=== PATIENT | female | born 2000 | race Caucasian/White ===

== ENCOUNTER 2022-10-03 08:14 | Inpatient (IN) | payer MEDICAID, MEDICARE ==
[~2022-10-03] VITALS: Ht 162.6 cm; Wt 70.3 kg
[2022-10-03] MEDS ORDERED: METHYLERGONOVINE MALEATE 0.2 MG/ML IM PRN ×2 (08:45→10:00)
[2022-10-03] MEDS ORDERED: LACTATED RINGERS 1,000 ML IV SCH (08:45)
[2022-10-03] MEDS ORDERED: NALOXONE HCL 0.4 MG/ML 1ML VIAL IM PRN (08:45)
[2022-10-03] MEDS ORDERED: LIDOCAINE HCL 1% 20ML VIAL (Pyxis) INJ INFIL SCH (08:45)
[2022-10-03] MEDS ORDERED: MINERAL OIL 30ML BOTTLE PO ONE (08:45)
[2022-10-03] MEDS ORDERED: PENICILLIN G POTASSIUM 5 MMU in DEXT 5% WATER 100 ML IV NR (09:30)
[2022-10-03] MEDS: OXYTOCIN 30 UNITS/500ML NS PMX 500 ML IV SCH ×2 (09:39→11:23)
[2022-10-03] MEDS ORDERED: OXYTOCIN 30 UNITS/500ML NS PMX 500 ML IV SCH (10:00)
[2022-10-03] MEDS ORDERED: IBUPROFEN 400MG TABLET PO PRN (10:00)
[2022-10-03] MEDS ORDERED: LANOLIN OINT 7GM TUBE TOP PRN (10:00)
[2022-10-03] MEDS ORDERED: RHO(D) IMMUNE GLOBULIN 300 MCG/SYR IM PRN (10:00)
[2022-10-03] MEDS ORDERED: BENZOCAINE/LANOLIN/ALOE VERA SPRAY TOP PRN (10:00)
[2022-10-03 10:39] LABS: BASOPHILS % 0.3 % (0.0-2.0); EOSINOPHILS % 0.1 % (0.0-5.0); HEMATOCRIT. 28.2 % (36.0-48.0); HEMOGLOBIN. 9.1 g/dL (12.0-16.0); LYMPHOCYTES % 28.1 % (20.0-50.0); MEAN CORPUSCULAR HEMOGLOBIN 25.9 pg (28.0-32.0); MEAN PLATELET VOLUME 9.9 fl (7.4-10.4); MONOCYTES % 5.4 % (2.0-8.0); NEUTROPHILS % 66.1 % (40.0-76.0); PLATELET 278 x1000/uL (130-400); RED BLOOD CELL COUNT 3.53 mill/uL (4.2-5.4); RED CELL DISTRIBUTION WIDTH 16.2 % (11.6-14.6)
[2022-10-03 10:42] LABS: CLARITY URINE CLOUDY (CLEAR); COLOR URINE DARK YELLOW (YELLOW); KETONES URINE 3+ (NEGATIVE); LEUKOCYTE ESTERASE URINE TRACE (NEGATIVE); NITRITE URINE NEGATIVE (NEGATIVE); OCCULT BLOOD URINE 3+ (NEGATIVE); PROTEIN URINE 2+ (NEGATIVE); SPECIFIC GRAVITY URINE 1.034 (1.005-1.030)
[2022-10-03 10:59] LABS: INR 0.9; PROTHROMBIN TIME 10.1 sec (9.6-11.0)
[2022-10-03 11:03] LABS: *AMPHETAMINES SCREEN URINE NEGATIVE (NEGATIVE); *BARBITURATES SCREEN URINE NEGATIVE (NEGATIVE); *BENZODIAZEPINES SCREEN URINE NEGATIVE (NEGATIVE); *COCAINE SCREEN URINE NEGATIVE (NEGATIVE); CANNABINOID URINE SCREEN NEGATIVE (NEGATIVE); METHADONE URINE SCREEN NEGATIVE (NEGATIVE); OPIATES URINE SCREEN NEGATIVE (NEGATIVE); PHENCYCLIDINE URINE SCREEN NEGATIVE (NEGATIVE)
[2022-10-03] MEDS: IBUPROFEN 800MG TABLET PO PRN (11:20)
[2022-10-03 12:00] VITALS: BP 131/53; PULSE 94; RESP 18; TEMP 98.1; O2SAT 97
[2022-10-03 13:11] LABS: HEPATITIS B SURFACE ANTIGEN NEGATIVE
[2022-10-03] MEDS ORDERED: PENICILLIN G POTASSIUM 2.5 MMU in DEXTROSE 5% WATER 50 ML IV SCH (13:30)
[2022-10-03 15:30] VITALS: BP 114/57; PULSE 61; RESP 18; TEMP 98.5; O2SAT 99
[2022-10-03 20:00] VITALS: O2SAT 98
[2022-10-03 20:40] VITALS: BP 106/60; PULSE 93; RESP 18; TEMP 99
[2022-10-04 03:00] VITALS: BP 107/61; PULSE 75; RESP 18; TEMP 98.7
[2022-10-04 07:03] LABS: BASOPHILS % 0.3 % (0.0-2.0); EOSINOPHILS % 0.1 % (0.0-5.0); LYMPHOCYTES % 17.3 % (20.0-50.0); MEAN CORPUSCULAR HEMOGLOBIN 25.4 pg (28.0-32.0); MEAN CORPUSCULAR VOLUME 80.7 fL (81.0-99.0); MEAN PLATELET VOLUME 9.6 fl (7.4-10.4); MONOCYTES % 5.1 % (2.0-8.0); NEUTROPHILS % 77.2 % (40.0-76.0); PLATELET 199 x1000/uL (130-400); RED BLOOD CELL COUNT 2.52 mill/uL (4.2-5.4); RED CELL DISTRIBUTION WIDTH 15.7 % (11.6-14.6)
[2022-10-04 07:49] LABS: HEMATOCRIT. 20.4 % (36.0-48.0); HEMOGLOBIN. 6.4 g/dL (12.0-16.0)
[2022-10-04] MEDS ORDERED: PRENATAL VIT/FE FUMARATE/FA TABLET PO SCH (09:00)
[2022-10-04 09:30] VITALS: O2SAT 98
[2022-10-04 10:30] VITALS: BP 115/65; PULSE 88; RESP 18; TEMP 98.7
[2022-10-04 15:00] VITALS: BP 110/64; PULSE 92; RESP 18; TEMP 98.6
[2022-10-04 20:00] VITALS: BP 111/71; PULSE 90; RESP 18; TEMP 98.9; O2SAT 97
[2022-10-04] MEDS ORDERED: DOCUSATE SODIUM 100MG CAPSULE PO SCH (21:00)
[2022-10-04] MEDS: IBUPROFEN 800MG TABLET PO PRN (21:14)
[2022-10-05 03:00] VITALS: BP 107/60; PULSE 80; RESP 18; TEMP 98.6
[2022-10-05] MEDS ORDERED: FERR-71 MT (06:46)
[2022-10-05] MEDS ORDERED: IBUP-2029 MT (06:46)
[2022-10-05 08:00] VITALS: BP 96/50; PULSE 88; RESP 18; TEMP 98.5; O2SAT 98
[2022-10-05 11:23] VITALS: BP 96/50; PULSE 88; RESP 18
[2022-10-05] MEDS: IBUPROFEN 800MG TABLET PO PRN (11:23)
== END 2022-10-05 14:50 | disposition home or self-care (01) | DRG 560 ==
LOC: 8 EST LDRP 08:14 → OBSVTOIN 08:14 → 8EST 17:00
PROVIDERS: ADMIT Obstetrics & Gynecology; ATTEND Obstetrics & Gynecology
PROC: 10E0XZZ Delivery of Products of Conception, External Approach (ICD-10-PCS; principal; 2022-10-03)
PROC: 0HQ9XZZ Repair Perineum Skin, External Approach (ICD-10-PCS; 2022-10-03)
DX: O99.02 Anemia complicating childbirth (principal); Z37.0 Single live birth; D62 Acute posthemorrhagic anemia; O70.0 First degree perineal laceration during delivery; Z3A.38 38 weeks gestation of pregnancy
CPT/HCPCS: 36415; 80305; 81003; 85025; 86592; 86703; 86762; 86850; 86900; 87340; 99281; G0378; J2540; J3490; J7060; J7120; J2590